=== PATIENT | male | born 2000 | race Caucasian/White ===

== ENCOUNTER 2021-03-15 11:45 | Emergency (ER) | payer OTHER, SELFPAY ==
--- NOTE | ~2021-03-15 | XR_ITS ---
EXAMINATION: XR ankle RT min 3V EXAM DATE: 03/15/2021 12:39 INDICATION: Fall, right ankle pain after injury. Initial encounter. TECHNIQUE: Right ankle frontal, lateral and oblique projections obtained and reviewed. There is no p rior study for comparison. FINDINGS: The right ankle mortise appears intact. There are no acute fractures or dislocations iden tified. There is no subcutaneous gas. The soft tissue is unremarkable. There are no radiopaque fo reign bodies. IMPRESSION: 1. XR ankle RT min 3V exam without acute osseous findings. Reviewed, dictated and finalized at location B.
[2021-03-15 11:50] VITALS: BP 129/77; PULSE 80; RESP 16; TEMP 36.7; O2SAT 100
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
== END 2021-03-15 13:36 | disposition home or self-care (01) ==
PROVIDERS: Emergency Provider Emergency Medicine
DX: S93.401A Sprain of unspecified ligament of right ankle, initial encounter (principal); X50.9XXA Other and unspecified overexertion or strenuous movements or postures, initial encounter
CPT/HCPCS: 73610; 99283

== ENCOUNTER 2024-02-19 15:46 | Emergency (ER) | payer SELFPAY ==
[2024-02-19 16:05] VITALS: BP 140/69; PULSE 92; RESP 16; TEMP 37.1; O2SAT 99
[2024-02-19 16:07] VITALS: BP 140/69; PULSE 92; RESP 16; TEMP 37.1; O2SAT 99
--- NOTE | 2024-02-19 16:31 | ED.URI ---
HPI - URI/Sore Throat General Chief Complaint: Upper Respiratory Infection Stated Complaint: throat sore,white spots Time Seen by Provider: 02/19/24 16:23 Source: patient and RN notes reviewed Mode of arrival: ambulatory Limitations: no limitations History of Present Illness HPI Narrative: Patient presents today with a 2 day history of sore throat. Denies any additional symptoms including fever, shortness of breath, difficulty swallowing. Currently rates his pain 6/10 and has tried no [id number] treatment prior to arrival. Related Data Allergies Allergy/AdvReac Type Severity Reaction Status Date / Time Penicillins Allergy Rash Verified 03/15/21 12:03 Review of Systems Review of Systems: CONSTITUTIONAL: Denies body aches, fever, chills, or sweats. EYES: Denies visual changes, redness, or discharge. ENT: Denies rhinorrhea, congestion, or otalgia.+ sore throat CARDIOVASCULAR: Denies chest pain, palpitations, or edema. RESPIRATORY: Denies cough or dyspnea. GASTROINTESTINAL: Denies abdominal pain, nausea, vomiting, or diarrhea. GENITOURINARY: Denies dysuria or hematuria. SKIN: Denies rash, itching, or wounds. MUSCULOSKELETAL: Denies back pain, joint pain, or myalgia. NEUROLOGIC: Denies headache, numbness, tingling, or weakness. PSYCH: Denies depression or anxiety. [facility] Past Medical History Medical History Well adult exam Family History Family History Other Diabetes mellitus Hypertension Lung cancer Social History Social History Smoking status: Never smoker Alcohol intake: current Comments At time of signature, I have reviewed and agree with nursing past medical, surgical, social and family history unless otherwise noted. Please see nursing chart for further information. There is no relevant family history pertinent to the presenting complaint Exam Narrative: GENERAL: Well-appearing, well-nourished, and in no acute distress. HEAD: Normocephalic, atraumatic. EYES: EOMI. No redness or drainage. Conjunctivae normal. ENT: Mucous membranes pink and moist. Nares clear. No rhinorrhea. TMs normal bilaterally. Throat erythematous. Tonsils 3+ with moderate white exudate. Uvula midline. NECK: Normal AROM. Supple. No lymphadenopathy. CHEST: No respiratory distress. Clear to auscultation. HEART: Regular rate and rhythm. No murmur appreciated. EXTREMITIES: Normal range of motion. No edema. SKIN: Warm, dry, no rash. Capillary refill normal. Normal skin turgor. NEURO: No focal deficits. Alert and oriented x3. Gait steady. PSYCH: Normal affect. No signs of depression or anxiety. Course Course Level of Care: Express Care Visit Vital Signs Vital signs: Vital Signs Temperature 98.8 F 02/19/24 16:05 Pulse Rate 92 02/19/24 16:05 Respiratory Rate 16 02/19/24 16:05 Blood Pressure 140/69 02/19/24 16:05 Pulse Oximetry 99 02/19/24 16:05 Oxygen Delivery Room Air 02/19/24 16:05 Temperature 98.8 F 02/19/24 16:07 Pulse Rate 92 02/19/24 16:07 Respiratory Rate 16 02/19/24 16:07 Blood Pressure 140/69 02/19/24 16:07 Pulse Oximetry 99 02/19/24 16:07 Oxygen Delivery Room Air 02/19/24 16:07 Reviewed MDM - URI/Sore Throat MDM Narrative Medical decision making narrative: Rapid strep positive. Patient states he is allergic to penicillin and is unsure of the cause. Will place him on clindamycin. Patient declines prescription for short course of prednisone to help with his tonsillar swelling. Anticipatory guidance given. Differential Diagnosis Differential diagnosis: Likely upper respiratory infection, pharyngitis and other (Strep throat) Lab Data Attestation: I reviewed the patient's lab results. Labs: Strep Screen Positive Group A Strep
== END 2024-02-19 16:43 | disposition home or self-care (01) ==
PROVIDERS: Emergency Provider Nurse Practitioner
DX: J02.0 Streptococcal pharyngitis (principal)
CPT/HCPCS: 87880; 99213; G0463

== ENCOUNTER 2024-06-26 18:15 | Emergency (ER) | payer SELFPAY ==
[2024-06-26 18:17] VITALS: BP 145/100; PULSE 95; RESP 16; TEMP 36.8; O2SAT 100
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
--- NOTE | 2024-06-26 19:39 | PC.NURSE ---
This RN offered to dress the pt's ly and pt stated he has his own stuff at home he would like to use. This RN explained that gauze and Vaseline is recommended for dressing, pt verbalized understanding.
[2024-06-26 19:41] VITALS: BP 142/84; PULSE 91; RESP 15; O2SAT 100
== END 2024-06-26 19:44 | disposition home or self-care (01) ==
PROVIDERS: Emergency Provider Emergency Medicine; PCP Family Medicine
DX: T24.211A Burn of second degree of right thigh, initial encounter (principal); T24.231A Burn of second degree of right lower leg, initial encounter; T31.0 Burns involving less than 10% of body surface; L03.115 Cellulitis of right lower limb; X19.XXXA Contact with other heat and hot substances, initial encounter; V28.09XA Other motorcycle driver injured in noncollision transport accident in nontraffic accident, initial encounter
CPT/HCPCS: 99283